=== PATIENT | male | born 1950 | race Caucasian/White ===

== ENCOUNTER → 2017-09-15 | Outpatient (CLI) | payer MEDICARE, OTHER ==
--- NOTE | 2017-09-15 15:06 | KCIC ---
Examination: CT pelvis without contrast HISTORY: History of right testicular discomfort, pain for one month COMPARISON: None available TECHNIQUE: Axial CT images of the pelvis were performed without contrast. Coronal and sagittal reformats performed Exposure: One or more of the following individualized dose reduction techniques were utilized for this examination: 1. Automated exposure control 2. Adjustment of the mA and/or kV according to patient size 3. Use of iterative reconstruction technique FINDINGS: The evaluation of bowel is limited due to streak artifact from bilateral hip prosthesis. There is a 4.3 x 2.5 cm density identified measuring 25 Hounsfield units identified in the right pelvic region deep to the acetabular region best visualized on series 2 image #47. Mild aortic atherosclerosis. Few sigmoid colon diverticulosis. The partially visualized appendix grossly appears unremarkable. Urinary bladder is mildly distended. Prior surgical changes identified in the bilateral scrotal region probably mastectomy changes No evidence of obvious inguinal hernia identified Moderate degenerative changes L4-L5 vertebral levels. IMPRESSION: 1. No evidence of inguinal hernia identified. 2. There is a 4.3 x 2.5 cm density identified measuring 25 Hounsfield units identified in the right pelvic region deep to the acetabular region best visualized on series 2 image #47, nonspecific could be a cystic density secondary to right hip prosthesis. MRI pelvis without and with IV contrast can be considered for further evaluation. 3. Sigmoid colon diverticulosis. Electronically signed by: Mele Holman MD (09/15/2017 3:03 PM) [facility]
== END | disposition home or self-care (01) ==
LOC: KCIC CT 14:21
PROVIDERS: ATTEND Family Medicine
DX: N50.811 Right testicular pain (principal); K57.30 Diverticulosis of large intestine without perforation or abscess without bleeding; R19.07 Generalized intra-abdominal and pelvic swelling, mass and lump
CPT/HCPCS: 72192

== ENCOUNTER 2018-03-03 20:42 | Emergency (ER) | payer MEDICARE, OTHER ==
[2018-03-03] MEDS: HYDROcodone/APAP 10/325 1 TAB TABLET PO (21:29)
== END 2018-03-03 22:35 | disposition home or self-care (01) ==
LOC: ER 22:35
DX: M25.511 Pain in right shoulder (principal); I10 Essential (primary) hypertension; Z91.041 Radiographic dye allergy status; X50.9XXA Other and unspecified overexertion or strenuous movements or postures, initial encounter; Y93.89 Activity, other specified; Y99.8 Other external cause status; Y92.89 Other specified places as the place of occurrence of the external cause
CPT/HCPCS: 73030; 99284-25

== ENCOUNTER 2019-03-07 15:22 | Emergency (ER) | payer MEDICARE, OTHER ==
[~2019-03-07] VITALS: Ht 185.4 cm; Wt 90.3 kg
[~2019-03-07 15:22] MED LIST: CETI10TA22 PO; GUAI600T47 PO; HYDR-2761 PO; MELO15TA6 PO; OMEP20TA63 PO
[2019-03-07] MEDS ORDERED: IV NORMAL SALINE 1000ML BAG 1,000 ML IV ONE (15:45)
[2019-03-07 15:48] LABS: BASO # 0.1 x10^3/uL (0.0-0.2); BASO % 1 % (0-3); EOS # 0.1 x10^3/uL (0.0-0.7); EOS % 1 % (0-3); HEMATOCRIT 41.9 % (39.0-53.0); HEMOGLOBIN 14.2 g/dL (13.0-17.5); LYMPH # 1.4 x10^3/uL (1.0-4.8); LYMPH % 11 % (24-48); MEAN CORPUSCULAR HEMOGLOBIN 29 pg (25-35); MEAN CORPUSCULAR HGB CONC 34 g/dL (31-37); MEAN CORPUSCULAR VOLUME 87 fL (79-100); MONO # 0.6 x10^3/uL (0.0-1.1); MONO % 5 % (0-9); NEUT # 9.8 x10^3uL (1.8-7.7); NEUT % 83 % (31-73); PLATELET COUNT 186 x10^3/uL (140-400); RED BLOOD COUNT 4.83 x10^6/uL (4.30-5.70); RED CELL DISTRIBUTION WIDTH 13.6 % (11.5-14.5); WHITE BLOOD COUNT 11.9 x10^3/uL (4.0-11.0)
[2019-03-07 16:06] LABS: CALCIUM 9.3 mg/dL (8.5-10.1); CREATININE 1.1 mg/dL (0.7-1.3); GFR 66.2; POTASSIUM 3.7 mmol/L (3.5-5.1)
[2019-03-07 16:12] LABS: ALBUMIN 3.8 g/dL (3.4-5.0); ALBUMIN/GLOBULIN RATIO 1.2 (1.0-1.7); MAGNESIUM 1.9 mg/dL (1.8-2.4); TOTAL BILIRUBIN 1.1 mg/dL (0.2-1.0); TOTAL PROTEIN 7.1 g/dL (6.4-8.2)
--- NOTE | 2019-03-07 16:14 | RAD ---
CT HEAD WO CONTRAST Clinical indications: SYNCOPE COMPARISON: 05/05/2018. Technique: Noncontrast axial cross sectional scanning of the head was performed. PQRS compliance Statement One or more of the following individualized dose reduction techniques were utilized for this study: 1. Automated exposure control 2. Adjustment of the mA and/or kV according to patient size 3. Use of iterative reconstruction technique Findings: No acute intracranial hemorrhage or midline shift or mass-effect or hydrocephalus or extra-axial fluid collection is seen. 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 There is mild bilateral periventricular white matter hypodensity consistent with chronic small vessel ischemic disease in this age group. This is stable. No new focal hypodense area or sulci effacement is seen to indicate an acute infarct or edema radiographically. No skull fracture or pneumocephalus is seen. No opacification of the mastoid sinuses or the middle ear cavities or the paranasal sinuses is seen. The maxillary sinuses are not completely seen in this study. Impression: No acute intracranial abnormality is seen. Electronically signed by: Peter Diaz MD (03/07/2019 4:11 PM) [email or web address]
[2019-03-07 16:42] VITALS: BP 145/71
--- NOTE | 2019-03-07 16:42 | RAD ---
PORTABLE CHEST 1V Clinical indications: SYNCOPE EPISODE TODAY COMPARISON: None available. Findings: No acute lung infiltrate or pleural effusion or pulmonary edema or lung mass or pneumothorax is seen. The heart size, pulmonary vasculature, mediastinum and both nico are unremarkable. Impression: No acute radiographic abnormality is seen. Electronically signed by: Peter Diaz MD (03/07/2019 4:39 PM) [facility]
--- NOTE | 2019-03-07 17:22 | PHYS DOC ---
Past Medical History Past Medical History: Arthritis, Depression, High Cholesterol, Hypertension, Stroke Past Surgical History: Hip Replacement, Tonsillectomy, Other Additional Past Surgical Histo: Vocal Cord Cancer, LOOP MONITOR Alcohol Use: None Drug Use: None Adult General Chief Complaint Chief Complaint: SYNCOPE HPI HPI Patient is a 68 year old male who brought in by EMS because of a syncopal episode. Patient had prostate biopsy this morning and had fasting condition and a mild colon prep also. Patient did not eat or drink anything after his procedure and had episodes of mild headedness and dizziness and then went to the post office. Patient had a syncopal episode without seizure activity that was witnessed by post office staff and 911 was called. Patient denies chest pain and focal neurodeficit before and after syncopal episode and history of syncope. Review of Systems Review of Systems Constitutional: Denies fever or chills [] Eyes: Denies change in visual acuity, redness, or eye pain [] HENT: Denies nasal congestion or sore throat [] Respiratory: Denies cough or shortness of breath [] Cardiovascular: No additional information not addressed in HPI [] GI: Denies abdominal pain, nausea, vomiting, bloody stools or diarrhea [] : Denies dysuria or hematuria [] Musculoskeletal: Denies back pain or joint pain [] Integument: Denies rash or skin lesions [] Neurologic: Denies headache, focal weakness or sensory changes [] Endocrine: Denies polyuria or polydipsia [] All other systems were reviewed and found to be within normal limits, except as documented in this note. Current Medications Current Medications Current Medications Medications (Trade) Dose Ordered Sig/Jose Daniel Start Time Stop Time Status Last Admin Dose Admin Sodium Chloride 1,000 ml @ 1,000 mls/hr 1X ONCE 03/07/19 15:45 03/07/19 16:44 DC 03/07/19 15:46 1,000 MLS/HR Allergies Allergies Allergies Coded Allergies Type Severity Reaction Last Updated Verified Iodine and Iodide Containing Produc Allergy Severe 05/04/18 Yes Physical Exam Physical Exam Constitutional: Well developed, well nourished, mild distress, non-toxic appearance. [] HENT: Normocephalic, atraumatic, oropharynx moist, no oral exudates, nose normal. [] Eyes: PERRLA, EOMI, conjunctiva normal, no discharge. [] Neck: Normal range of motion, no tenderness, supple, no stridor. [] Cardiovascular:Heart rate regular rhythm, no murmur [] Lungs & Thorax: Bilateral breath sounds clear to auscultation [] Abdomen: Bowel sounds normal, soft, no tenderness, no masses, no pulsatile masses. [] Skin: Warm, dry, no erythema, no rash. [] Back: No tenderness, no CVA tenderness. [] Extremities: No tenderness, no cyanosis, no clubbing, ROM intact, no edema. [] Neurologic: Alert and oriented X 3, normal motor function, normal sensory function, no focal deficits noted. [] Psychologic: Affect normal, judgement normal, mood normal. [] Current Patient Data Vital Signs Vital Signs Date Time Temp Pulse Resp B/P (MAP) Pulse Ox O2 Delivery O2 Flow Rate FiO2 03/07/19 16:42 95 25 145/71 (95) 96 Room Air 03/07/19 15:24 98.2 98.2 Lab Values Laboratory Tests Test 03/07/19 15:40 White Blood Count 11.9 x10^3/uL (4.0-11.0) H Red Blood Count 4.83 x10^6/uL (4.30-5.70) Hemoglobin 14.2 g/dL (13.0-17.5) Hematocrit 41.9 % (39.0-53.0) Mean Corpuscular Volume 87 fL (79-100) Mean Corpuscular Hemoglobin 29 pg (25-35) Mean Corpuscular Hemoglobin Concent 34 g/dL (31-37) Red Cell Distribution Width 13.6 % (11.5-14.5) Platelet Count 186 x10^3/uL (140-400) Neutrophils (%) (Auto) 83 % (31-73) H Lymphocytes (%) (Auto) 11 % (24-48) L Monocytes (%) (Auto) 5 % (0-9) Eosinophils (%) (Auto) 1 % (0-3) Basophils (%) (Auto) 1 % (0-3) Neutrophils # (Auto) 9.8 x10^3uL (1.8-7.7) H Lymphocytes # (Auto) 1.4 x10^3/uL (1.0-4.8) Monocytes # (Auto) 0.6 x10^3/uL (0.0-1.1) Eosinophils # (Auto) 0.1 x10^3/uL (0.0-0.7) Basophils # (Auto) 0.1 x10^3/uL (0.0-0.2) Sodium Level 138 mmol/L (136-145) Potassium Level 3.7 mmol/L (3.5-5.1) Chloride Level 102 mmol/L (98-107) Carbon Dioxide Level 23 mmol/L (21-32) Anion Gap 13 (6-14) Blood Urea Nitrogen 18 mg/dL (8-26) Creatinine 1.1 mg/dL (0.7-1.3) Estimated GFR (Cockcroft-Gault) 66.2 BUN/Creatinine Ratio 16 (6-20) Glucose Level 106 mg/dL (70-99) H Calcium Level 9.3 mg/dL (8.5-10.1) Magnesium Level 1.9 mg/dL (1.8-2.4) Total Bilirubin 1.1 mg/dL (0.2-1.0) H Aspartate Amino Transferase (AST) 22 U/L (15-37) Alanine Aminotransferase (ALT) 21 U/L (16-63) Alkaline Phosphatase 76 U/L (46-116) Troponin I Quantitative < 0.017 ng/mL (0.000-0.055) Total Protein 7.1 g/dL (6.4-8.2) Albumin 3.8 g/dL (3.4-5.0) Albumin/Globulin Ratio 1.2 (1.0-1.7) Laboratory Tests 03/07/19 15:40 Laboratory Tests 03/07/19 15:40 EKG EKG EKG interpreted by me. EKG at 1531 showed normal sinus rhythm at rate of 73, incomplete right bundle branch block, no acute ST and T-wave abnormalities. Radiology/Procedures Radiology/Procedures [facility] [address] [place] [address] IMAGING REPORT Signed PATIENT: CLARK WILLIAM ACCOUNT: [id number] : 1950 LOCATION: ER AGE: 68 SEX: M EXAM STATUS: PRE ER ORD. PHYSICIAN: SANTI NICHOLSON MD REASON: syncope PROCEDURE: PORTABLE CHEST 1V PORTABLE CHEST 1V Clinical indications: SYNCOPE EPISODE TODAY COMPARISON: None available. Findings: No acute lung infiltrate or pleural effusion or pulmonary edema or lung mass or pneumothorax is seen. The heart size, pulmonary vasculature, mediastinum and both nico are unremarkable. Impression: No acute radiographic abnormality is seen. Electronically signed by: Audrey Diaz MD (03/07/2019 4:39 PM) [place] [id number] DICTATED and SIGNED BY: AUDREY DIAZ MD DATE: 03/07/19 1639 [facility] [address] [place], [place] [id number] IMAGING REPORT Signed PATIENT: CLARK WILLIAM ACCOUNT: [id number] : 1950 LOCATION: ER AGE: 68 SEX: M EXAM STATUS: PRE ER ORD. PHYSICIAN: SANTI NICHOLSON MD REASON: syncope PROCEDURE: CT HEAD WO CONTRAST CT HEAD WO CONTRAST Clinical indications: SYNCOPE COMPARISON: 05/05/2018. Technique: Noncontrast axial cross sectional scanning of the head was performed. PQRS compliance Statement One or more of the following individualized dose reduction techniques were utilized for this study: 1. Automated exposure control 2. Adjustment of the mA and/or kV according to patient size 3. Use of iterative reconstruction technique Findings: No acute intracranial hemorrhage or midline shift or mass-effect or hydrocephalus or extra-axial fluid collection is seen. 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 There is mild bilateral periventricular white matter hypodensity consistent with chronic small vessel ischemic disease in this age group. This is stable. No new focal hypodense area or sulci effacement is seen to indicate an acute infarct or edema radiographically. No skull fracture or pneumocephalus is seen. No opacification of the mastoid sinuses or the middle ear cavities or the paranasal sinuses is seen. The maxillary sinuses are not completely seen in this study. Impression: No acute intracranial abnormality is seen. Electronically signed by: Audrey Diaz MD (03/07/2019 4:11 PM) [place] [id number] DICTATED and SIGNED BY: AUDREY DIAZ MD DATE: 03/07/19 1611 Course & Med Decision Making Course & Med Decision Making Pertinent Labs and Imaging studies reviewed. (See chart for details) Evaluation of patient in ER showed 68-year-old male patient who had a syncopal episode after had a procedure today. Patient had unremarkable physical exam and vital sign and treated with IV fluid and felt better. Labs was unremarkable and CT head and chest x-ray did not show any abnormality. Patient did not want hospitalization and felt better and wanted to go home and follows up with his primary care physician. Dragon Disclaimer Dragon Disclaimer This electronic medical record was generated, in whole or in part, using a voice recognition dictation system. Departure Departure Impression: Primary Impression: Syncope due to orthostatic hypotension Disposition: 01 HOME, SELF-CARE (at 1721) Condition: IMPROVED Referrals: HARDIK ACUNA MD (PCP) Patient Instructions: Syncope Additional Instructions: Drink plenty of liquids Follow-up with your primary care physician in 2-3 days Return to ER if not getting better SANTI NICHOLSON MD Mar 07, 2019 17:22
--- NOTE | 2019-03-08 06:09 | EKG ---
[facility] [address] [place] [address] Test Date: 2019-03-07 Test Time: 15:31:35 Pat Name: CLARK WILLIAM Department: Room: Gender: M Building Serviceman: : 1950 Requested By: SANTI NICHOLSON Order Number: [id number] Reading MD: Kishor Caputo Measurements Intervals [place] Rate: 73 P: 65 [place]: 156 QRS: 59 QRSD: 102 T: 50 QT: 392 QTc: 436 Interpretive Statements SINUS RHYTHM INCOMPLETE RIGHT BUNDLE BRANCH BLOCK NO SPECIFIC ECG ABNORMALITIES RI6.01 Unconfirmed report Compared to ECG 05/03/2018 05:24:44 Incomplete right bundle-branch block now present Electronically Signed On 03-13-2019 11:55:44 CDT by Kishor Caputo
== END 2019-03-07 17:35 | disposition home or self-care (01) ==
LOC: ER 15:22
DX: I95.1 Orthostatic hypotension (principal); R55 Syncope and collapse; I10 Essential (primary) hypertension; E78.00 Pure hypercholesterolemia, unspecified; F32.9 Major depressive disorder, single episode, unspecified; Z86.73 Personal history of transient ischemic attack (TIA), and cerebral infarction without residual deficits; Z91.041 Radiographic dye allergy status
CPT/HCPCS: 36415; 70450; 71045; 80053; 83735; 84484; 85025; 93005; 96360; 99285; J7030